=== PATIENT | male | born 1985 | race Hispanic/Latino ===

== ENCOUNTER 2019-06-09 15:55 | Emergency (ER) | payer SELFPAY ==
[2019-06-09] MEDS ORDERED: SODIUM CHLORIDE 0.9% 1000ML 1,000 ML IVS ONE (16:06)
[2019-06-09] MEDS ORDERED: chlordiazePOXIDE HCL 25 MG CAP PO ONE (16:07)
[2019-06-09] MEDS ORDERED: chlordiazePOXIDE HCL 5 MG CAP ONE (16:13)
--- NOTE | 2019-06-09 16:17 | ED.PDOC ---
History of Present Illness - General Stated Complaint: hiccups, not feeing well, Time Seen by Provider: 06/09/19 16:05 Source: patient, RN notes reviewed, Vital Signs reviewed Additional Information: 33 year old male patient that presents to the er with hiccups, chest pain, shortness of breath and not feeling well patient admits that he drinks alcohol, that he usually drinks 6 to 7 beer per day, and today only had one beer patient denies hallucinations, no nausea looks anxious but with no resting tremors - History of Present Illness Timing/Duration: getting worse Improving Factors: nothing Worsening Factors: nothing Associated Symptoms: chest pain, nausea/vomiting, shortness of breath Allergies/Adverse Reactions: Allergies NO KNOWN ALLERGY Allergy (Verified 06/09/19 17:23) Review of Systems - Review of Systems Constitutional: Denies: diaphoresis, fever, malaise, weakness EENTM: Denies: eye pain, blurred vision, tearing, double vision, ear pain, ear discharge, nose pain, nose congestion, throat pain, throat swelling, mouth pain, mouth swelling Respiratory: Denies: cough, orthopnea, short of breath, stridor, wheezing Cardiology: Denies: chest pain, edema, palpitations, syncope Gastrointestinal/Abdominal: States: nausea. Denies: abdominal pain, constipation, diarrhea, vomiting Genitourinary: Denies: discharge, dysuria, frequency, hematuria Musculoskeletal: Denies: back pain, gout, joint pain, joint swelling, muscle pain, muscle stiffness, neck pain Skin: Denies: change in color, change in hair/nails, dryness, lesions, lumps, rash Neurological: Denies: anxiety, headache, numbness, paresthesia, tingling, trem ors, weakness Endocrine: Denies: excessive sweating, flushing, intolerance to cold, intolerance to heat, increased hunger, increased thirst, increased urine, unexplained weight gain, unexplained weight loss Hematologic/Lymphatic: Denies: anemia, blood clots, easy bleeding, easy bruising, swollen glands Family Medical History - Family History Mother Family History: Unknown Physical Exam - Physical Exam General Appearance: Alert, Well Developed Eye Exam: bilateral normal Ears, Nose, Throat: hearing grossly normal, other - dry lips Neck: non-tender, full range of motion, supple, normal inspection Respiratory: chest non-tender, lungs clear, normal breath sounds, no respiratory distress Cardiovascular/Chest: normal peripheral pulses, regular rate, rhythm, no edema, no gallop, no JVD, no murmur Gastrointestinal/Abdominal: normal bowel sounds, non tender, soft, no organomegaly, no pulsatile mass Back Exam: normal inspection, no CVA tenderness Extremity: normal range of motion, non-tender, normal inspection, no pedal edema, no calf tenderness Neurologic: peoplesoft II-XII nml as tested, no motor/sensory deficits, alert, normal mood/affect, oriented x 3 Skin Exam: normal color Lymphatic: no adenopathy Progress - Progress Progress: 06/09/19 17:18 33 year old that present with nausea, chest pain, shortness of breath. patient denies any drug use, but admits alcohol, and he drinks alcohol every day. patient ekg showed sinus tachycardia, with a heart rate of 105, i did not see any acute changes, but flattened t waves seen in lead II, patient first set of troponin was 0.06 which is considered abnormal, so i immediately ordered Aspirin 06/09/19 17:43 06/09/19 17:43 patient sodium was 117, luckily He did received 1 liter of normal saline which will help with his hyponatermia, i discussed case with hospitalist, patient case was discussed with hospitalist (Blake Trinidad) and he recommended transfer to a higher level of care patient feels better and denies any chest pain Departure - Departure Clinical Impression: Hyponatremia, Non-ST elevated myocardial infarction Alcohol dependence Qualifiers: Substance use status: in withdrawal Complication of substance-induced condition: uncomplicated Qualified Code(s): F10.230 - Alcohol dependence with withdrawal, uncomplicated Disposition: Transfer to Hospital Transfer to Outside Facility - Transfer Information Decision to Transfer Date: 06/09/19 Decision to Transfer Time: 17:42 Reason for Transfer: higher level of care
[2019-06-09] MEDS ORDERED: ASPIRIN (CHEWABLE) 81 MG TAB PO ONE (17:17)
--- NOTE | 2019-06-09 18:10 | RAD ---
EXAM DESCRIPTION: Single x-ray the chest CLINICAL HISTORY:33 years Male, chest pain Comparison: None FINDINGS: Bibasilar subsegmental atelectasis. No pleural effusion. No pneumothorax. Cardiac and mediastinal silhouette is unremarkable. No acute osseous abnormality. Soft tissues are unremarkable. IMPRESSION: No acute findings. No focal lung consolidation. Electronically signed by: Leonidas Daniel DO 06/09/2019 6:08 PM [facility]
[2019-06-09 19:45] VITALS: BP 96/59; TEMP 100.7; O2SAT 95
[2019-06-09] MEDS ORDERED: ENOXAPARIN SODIUM 80 MG/0.8 ML SYG SUBCU ONE (19:46)
== END 2019-06-09 20:09 | disposition short-term general hospital (02) ==
LOC: ER 15:55
DX: I21.4 Non-ST elevation (NSTEMI) myocardial infarction (principal); F10.230 Alcohol dependence with withdrawal, uncomplicated; E87.1 Hypo-osmolality and hyponatremia; R00.0 Tachycardia, unspecified; R11.2 Nausea with vomiting, unspecified
CPT/HCPCS: 36415; 71045; 80053; 80307; 80320; 84443; 84484; 85025; 93005; J1650; J7030